=== PATIENT | female | born 2005 | race Caucasian/White ===

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

== ENCOUNTER 2025-05-30 09:27 | Emergency (ER) | payer OTHER ==
[~2025-05-30] VITALS: Ht 167.6 cm; Wt 81.8 kg
[~2025-05-30 09:27] MED LIST: MAGN400T57 PO; METF750T57 PO; SEMA3TAB4 PO
[2025-05-30] MEDS ORDERED: METF-81 PO (09:35)
[2025-05-30] MEDS ORDERED: ETON68IM4 SD (09:35)
[2025-05-30] MEDS ORDERED: SEMA1PEN3 SQ (09:35)
[2025-05-30] MEDS: KETOROLAC TROMETHAMINE 60 MG/2 ML VIAL IM ONE (10:33)
[2025-05-30] MEDS: LIDOCAINE 5% TRANSDERMAL PATCH TD ONE (10:34)
[2025-05-30] MEDS ORDERED: METH-659 PO (10:58)
[2025-05-30] MEDS ORDERED: IBUP-1492 PO (10:58)
[2025-05-30] MEDS ORDERED: PERCT PO (11:00)
[2025-05-30] MEDS ORDERED: LIDO-57 TP (11:00)
[2025-05-30 11:05] VITALS: BP 121/74; PULSE 85; RESP 18; TEMP 98.2; O2SAT 99
== END 2025-05-30 11:19 | disposition home or self-care (01) ==
LOC: EMS 09:44
DX: S39.012A Strain of muscle, fascia and tendon of lower back, initial encounter (principal); M99.03 Segmental and somatic dysfunction of lumbar region; E11.9 Type 2 diabetes mellitus without complications; Z79.85 Long-term (current) use of injectable non-insulin antidiabetic drugs; X58.XXXA Exposure to other specified factors, initial encounter; Y93.89 Activity, other specified; Y92.89 Other specified places as the place of occurrence of the external cause; Y99.8 Other external cause status
CPT/HCPCS: 99283; 82962; 96372; J1885